=== PATIENT | male | born 1945 | race Caucasian/White ===

== ENCOUNTER 2017-12-07 16:52 | Emergency (ER) | payer MEDICARE, OTHER ==
[2017-12-07] MEDS ORDERED: Sodium Chloride 0.9% 1000 ML 1,000 ML IV SCH (17:00)
[2017-12-07 17:03] LABS: BASOPHIL % 0.7 % (0.0-0.4); Basophil (Absolute #) 0.06 (0-0.4); Eosinophil % 1.1 % (0.00-5.0); Eosinophil (Absolute #) 0.09 (0-0.5); Granulocyte Absolute (ANC) 5.79 (1.4-6.9); Granulocytes % 69.6 % (36.0-66.0); Hematocrit 44.9 % (42-50); Hemoglobin 14.8 gm/dl (12.5-18.0); Lymphocyte (Absolute #) 1.54 (1.0-4.6); Lymphocytes % 18.5 % (24.0-44.0); Mean Cell Volume 95.9 fl (78-100); Mean Corpuscular Hemoglobin 31.6 pg (26-32); Mean Platelet Volume 10.4 fl (6-9.5); Monocyte (Absolute #) 0.84 (0.0-1.3); Monocytes % 10.1 % (0.0-12.0); Platelet Count 146 K/mm3 (150-450); Red Blood Count 4.68 M/mm3 (4.1-5.6); White Blood Count 8.3 K/mm3 (4.0-10.5)
[2017-12-07] MEDS ORDERED: SUBLIMAZE 100 MCG/2 ML IV ONE (17:04)
[2017-12-07] MEDS ORDERED: BABY ASPIRIN 81 MG CHEW PO ONE (17:04)
[2017-12-07] MEDS ORDERED: LOPRESSOR 5 MG/5 ML INJECTION IV ONE ×2 (17:05→17:13)
[2017-12-07] MEDS ORDERED: Sodium Chloride 0.9% 1000 ML 1,000 ML ONE ×2 (17:06→17:15)
[2017-12-07] MEDS ORDERED: SUBLIMAZE 100 MCG/2 ML ONE (17:06)
[2017-12-07] MEDS ORDERED: BABY ASPIRIN 81 MG CHEW ONE (17:06)
[2017-12-07 17:10] VITALS: BP 194/109; O2SAT 97
--- NOTE | 2017-12-07 17:18 | XRAY ---
Indication: Chest pain. Comparison: None Portable chest is clear. Heart and mediastinal structures within normal limits for AP portable technique. Bony thorax intact with mild degenerative changes. Impression: Nonacute chest.
[2017-12-07 17:21] LABS: INR 1.04 (0.8-3.0)
--- NOTE | 2017-12-07 17:23 | ERPHSYRPT ---
- History of Present Illness Time Seen by Provider: 12/07/17 16:53 Historian: patient, family () Physician History: CC: chest pain HX: 72 [facility] He had prior remote [place] treated medically. He has had chest pain off and on for the past 2 weeks, worse with exertion. Today he was setting up his camper and had worsened chest pain. He takes asa daily in the evening. He takes viagra with lsat dose 3 days ago. He is a smoker. Not short of breath. Nitro Today/Relief: no nitro taken today Aspirin Treatment Today: 81 mg x 4, provided by ED Allergies/Adverse Reactions: No Known Drug Allergies Allergy (Unverified 06/07/15 19:14) Hx Tetanus, Diphtheria Vaccination/Date Given: No Hx Influenza Vaccination/Date Given: No Hx Pneumococcal Vaccination/Date Given: No - Review of Systems Constitutional: Malaise, Weakness, No Fever, No Chills Eyes: No Symptoms Ears, Nose, & Throat: No Symptoms Respiratory: No Cough, No Dyspnea Cardiac: Chest Pain, No Edema, No Palpitations, No Syncope Abdominal/Gastrointestinal: No Abdominal Pain, No Nausea, No Vomiting Skin: No Rash Neurological: No Focal Weakness, No Headache, No Parasthesia All Other Systems: Reviewed and Negative - Past Medical History Pertinent Past Medical History: Yes Cardiac History: High Cholesterol, Hypertension, Myocardial Infarction ([place]) - Past Surgical History Past Surgical History: Yes Musculoskeletal: Orthopedic Surgery - Social History Smoking Status: Current every day smoker Exposure to second hand smoke: No Drug Use: none Patient Lives Alone: No - Nursing Vital Signs Nursing Vital Signs: Initial Vital Signs Pulse Rate 142 H 12/07/17 17:06 Respiratory Rate 20 12/07/17 17:06 Blood Pressure 194/109 12/07/17 17:06 O2 Sat by Pulse Oximetry 97 12/07/17 17:06 Pain Scale Pain Intensity 6 - Physical Exam General Appearance: alert Eye Exam: PERRL/EOMI, other (right eye subconj hemorrhage) Ears, Nose, Throat Exam: moist mucous membranes Neck Exam: normal inspection, non-tender, supple Respiratory Exam: normal breath sounds Cardiovascular Exam: irregular Gastrointestinal/Abdomen Exam: soft, No tenderness, No distention Extremity Exam: normal inspection, normal range of motion Neurologic Exam: alert, oriented x 3, cooperative, 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 nml as tested, sensation nml, No motor deficits Skin Exam: warm, dry, No rash SpO2 Interpretation: normal SpO2: 97 Oxygen Delivery: Room Air - Course Nursing assessment & vital signs reviewed: Yes EKG Interpreted by Me: RATE (122), A-fib (RVR), Right Bundle Branch Block ( borderline), ST Elev (inferior with reciprocal changes) - Radiology Exams cxr X-ray Interpretation: Reviewed by me, Nml Mediastinum Ordered Tests: Active Orders 24 hr Category Date Time Status Motor Rebuilder STAT Care 12/07/17 16:54 Active EKG-ER Only STAT Care 12/07/17 16:53 Active IV Insertion STAT Care 12/07/17 16:53 Active Pulse Oximetry (ED) STAT Care 12/07/17 16:53 Active CHEST 1 VIEW (PORTABLE) Stat Exams 12/07/17 16:54 Taken CBC W DIFF Stat Lab 12/07/17 16:53 Completed CMP Stat Lab 12/07/17 17:00 Received PROTIME WITH INR Stat Lab 12/07/17 17:00 Received PTT Stat Lab 12/07/17 17:00 Received TROPONIN Q3H Lab 12/07/17 17:00 Received TROPONIN Q3H Lab 12/07/17 20:00 Ordered TROPONIN Q3H Lab 12/07/17 23:00 Ordered TROPONIN Q3H Lab 12/08/17 02:00 Ordered TROPONIN Q3H Lab 12/08/17 05:00 Ordered Medication Summary Generic Name Dose Route Start Last Admin Trade Name Freq PRN Reason Stop Dose Admin Sodium Chloride 1,000 mls @ 50 mls/hr 12/07/17 17:00 Sodium Chloride 0.9% 1000 Ml IV 01/06/18 16:59 .Q20H CEM Discontinued Medications Generic Name Dose Route Start Last Admin Trade Name Freq PRN Reason Stop Dose Admin Aspirin 324 mg 12/07/17 17:04 Baby Aspirin 81 Mg Chew PO 12/07/17 17:05 STAT ONE Aspirin Confirm 12/07/17 17:06 Baby Aspirin 81 Mg Chew Administered 12/07/17 17:07 Dose 324 mg .ROUTE .STK-MED ONE Fentanyl Citrate 50 mcg 12/07/17 17:04 Sublimaze 100 Mcg/2 Ml IV 12/07/17 17:05 STAT ONE Fentanyl Citrate Confirm 12/07/17 17:06 Sublimaze 100 Mcg/2 Ml Administered 12/07/17 17:07 Dose 100 mcg .ROUTE .STK-MED ONE Metoprolol Tartrate 5 mg 12/07/17 17:05 Lopressor 5 Mg/5 Ml Injection IV 12/07/17 17:06 STAT ONE Metoprolol Tartrate Confirm 12/07/17 17:13 Lopressor 5 Mg/5 Ml Injection Administered 12/07/17 17:14 Dose 5 mg IV .STK-MED ONE Lab/Rad Data: Laboratory Result Diagrams 12/07/17 16:53 Laboratory Results 12/07/17 Range/Units 16:53 WBC 8.3 (4.0-10.5) K/mm3 RBC 4.68 (4.1-5.6) M/mm3 Hgb 14.8 (12.5-18.0) gm/dl Hct 44.9 (42-50) % MCV 95.9 (78-100) fl MCH 31.6 (26-32) pg MCHC 33.0 (32-36) g/dl RDW 13.0 (11.5-14.0) % Plt Count 146 L (150-450) K/mm3 MPV 10.4 H (6-9.5) fl Gran % 69.6 H (36.0-66.0) % Eos # (Auto) 0.09 (0-0.5) Absolute Lymphs (auto) 1.54 (1.0-4.6) Absolute Monos (auto) 0.84 (0.0-1.3) Lymphocytes % 18.5 L (24.0-44.0) % Monocytes % 10.1 (0.0-12.0) % Eosinophils % 1.1 (0.00-5.0) % Basophils % 0.7 (0.0-0.4) % Absolute Granulocytes 5.79 (1.4-6.9) Basophils # 0.06 (0-0.4) - Progress Progress Note: 12/07/17 17:21 Discussed likely acute [place] with patient and . 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 Called Dr Hathaway who accepts transfer to [facility] ER for emergency cath. He is hypertensive and tachycardic. IV metoprolol given one dose. Held NTG due to Viagra use. ASA given. 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
[2017-12-07 17:24] LABS: ALBUMIN 3.8 g/dL (3.5-5.0); ANION GAP 14.2 MEQ/L (5-15); BILIRUBIN,TOTAL 0.3 mg/dL (0.2-1.3); Calcium 9.4 mg/dL (8.4-10.2); Creatinine 1 1.77 mg/dL (0.66-1.25); PTT 30.9 SECONDS (24.1-36.1); Potassium 3.9 mmol/L (3.5-5.1)
[2017-12-07 18:22] VITALS: PULSE 145
== END 2017-12-07 17:15 | disposition short-term general hospital (02) ==
LOC: ED 16:52
DX: I21.19 ST elevation (STEMI) myocardial infarction involving other coronary artery of inferior wall (principal); I10 Essential (primary) hypertension; I48.91 Unspecified atrial fibrillation; R00.0 Tachycardia, unspecified; I25.2 Old myocardial infarction; Z79.82 Long term (current) use of aspirin; F17.200 Nicotine dependence, unspecified, uncomplicated; I45.10 Unspecified right bundle-branch block
CPT/HCPCS: 36000; 36415; 71045; 80053; 84484; 85025; 85610; 85730; 93005; 93041; 96360; 96374; 96375; 99285; J3010; A9270-GY